=== PATIENT | female | born 1985 | race Two or more races ===

== ENCOUNTER 2019-08-10 20:55 | Emergency (ER) | payer MEDICAID ==
[~2019-08-10] VITALS: Ht 165.1 cm; Wt 93.4 kg
[~2019-08-10 20:55] MED LIST: PREN-96 PO
[2019-08-10 21:27] LABS: Urine Amorphous Crystal FEW /hpf (None Seen); Urine Bacteria FEW /hpf (None Seen); Urine Blood 3+ /uL (Negative); Urine Mucus FEW (None Seen); Urine Specific Gravity 1.021 (1.001-1.035); Urine WBC 7 /hpf (0 - 5)
[2019-08-10 22:04] LABS: Basophils # (auto) 0.1 10 ^3/uL (0-0.2); Eosinophils # (auto) 0.2 10 ^3/uL (0-0.8); Hematocrit 27.3 % (36.0-46.0); Hemoglobin 8.5 g/dL (12.2-16.2); Lymphocytes # (auto) 2.6 10 ^3/uL (0.4-5.4); Monocytes # (auto) 0.6 10 ^3/uL (0-1.3); White Blood Cell 8.3 10^3/uL (4.4-10.8)
[2019-08-10 22:05] LABS: Eosinophils % (auto) 2.7 % (0.0-7.0); Lymphocytes % (auto) 30.7 % (10.0-50.0); Mean Corpuscular Hgb Conc. 30.9 g/dL (32.0-36.0); Mean Corpuscular Volume 74.5 fL (80.0-100.0); Monocytes % (auto) 7.4 % (0.0-12.0); Neutrophils # (auto) 4.9 10 ^3/uL (1.6-8.6); Neutrophils % (auto) 58.2 % (37.0-80.0); Nucleated Red Blood Cells % 0.1 %; Platelet Count (auto) 400 10^3/uL (140-450); Red Blood Cells 3.67 10^6/uL (4.0-5.20); Red Cell Distribution Width 16.1 % (11.8-14.3)
[2019-08-10 22:20] LABS: Albumin 3.6 g/dL (3.4-5.0); Calcium 8.5 mg/dL (8.5-10.1); INR 0.98 (0.9-1.15); Partial Thromboplastin Time 23.6 sec (23.64-32.05); Potassium 3.6 mmol/L (3.5-5.1)
[2019-08-10 22:24] LABS: BUN/Creatinine Ratio 19.3; Bilirubin, Total 0.3 mg/dL (0.2-1.0); Total Protein 7.4 g/dL (6.4-8.2)
[2019-08-11] MEDS ORDERED: SODIUM CHLORIDE 0.9% 2,000 ML IV ONE (00:30)
[2019-08-11] MEDS ORDERED: ONDANSETRON HCL 4 MG/2 ML VIAL IV ONE (00:30)
[2019-08-11] MEDS ORDERED: cefTRIAXone 1GM/50ML D5W 50 ML IV ONE (00:30)
[2019-08-11] MEDS ORDERED: ONDANSETRON ODT 4 MG TAB PO ONE (02:00)
[2019-08-11 03:25] LABS: Hematocrit 24.7 % (36.0-46.0); Hemoglobin 7.6 g/dL (12.2-16.2)
[2019-08-11 05:54] VITALS: BP 111/60
[2019-08-11 06:09] VITALS: BP 122/62
[2019-08-11 08:21] VITALS: BP 97/60
== END 2019-08-11 09:11 | disposition home or self-care (01) ==
LOC: ER 20:55
DX: N93.8 Other specified abnormal uterine and vaginal bleeding (principal); N92.1 Excessive and frequent menstruation with irregular cycle; N39.0 Urinary tract infection, site not specified; D64.9 Anemia, unspecified; N83.201 Unspecified ovarian cyst, right side
CPT/HCPCS: 36415; 36430; 76856; 80053; 81001; 84702; 85014; 85018; 85025; 85610; 85730; 86850; 86900; 86901; 86920; 96365; 96366; 96375; 99285; J0696; J2405; J7030; P9016; Q0162

== ENCOUNTER → 2019-12-15 | Emergency (ER) | payer MEDICAID ==
[~2019-12-15] VITALS: Ht 165.1 cm; Wt 93.4 kg
[~2019-12-15] MED LIST changes: +ONDANSETRON ODT 4 MG TAB PO ONE
[2019-12-15 14:00] LABS: Urine Bacteria FEW /hpf (None Seen); Urine Blood 2+ /uL (Negative); Urine Mucus FEW (None Seen); Urine Specific Gravity 1.011 (1.001-1.035); Urine WBC <1 /hpf (0 - 5)
[2019-12-15 15:00] LABS: Basophils # (auto) 0.1 10 ^3/uL (0-0.2); Eosinophils # (auto) 0.2 10 ^3/uL (0-0.8); Monocytes # (auto) 0.5 10 ^3/uL (0-1.3)
[2019-12-15 15:02] LABS: Basophils % (auto) 0.9 % (0.0-2.0); Eosinophils % (auto) 2.5 % (0.0-7.0); Hematocrit 42.8 % (36.0-46.0); Hemoglobin 13.7 g/dL (12.2-16.2); Lymphocytes # (auto) 2.6 10 ^3/uL (0.4-5.4); Lymphocytes % (auto) 29.1 % (10.0-50.0); Mean Corpuscular Hemoglobin 24.7 pg (28.0-32.0); Mean Corpuscular Volume 77.1 fL (80.0-100.0); Monocytes % (auto) 5.1 % (0.0-12.0); Neutrophils # (auto) 5.5 10 ^3/uL (1.6-8.6); Neutrophils % (auto) 62.4 % (37.0-80.0); Nucleated Red Blood Cells % 0.1 %; Platelet Count (auto) 351 10^3/uL (140-450); Red Blood Cells 5.55 10^6/uL (4.0-5.20); Red Cell Distribution Width 18.8 % (11.8-14.3); White Blood Cell 8.8 10^3/uL (4.4-10.8)
[2019-12-15 15:18] LABS: Albumin 4.4 g/dL (3.4-5.0); BUN/Creatinine Ratio 19.3; Calcium 9.3 mg/dL (8.5-10.1); Potassium 3.6 mmol/L (3.5-5.1)
[2019-12-15 15:21] LABS: Bilirubin, Total 0.5 mg/dL (0.2-1.0); Total Protein 8.3 g/dL (6.4-8.2)
[2019-12-15 17:32] VITALS: BP 127/72
== END | disposition home or self-care (01) ==
LOC: ER 13:06
DX: B34.9 Viral infection, unspecified (principal); Z79.899 Other long term (current) drug therapy
CPT/HCPCS: 36415; 71046; 76705; 80053; 81001; 81025; 85025; 99285; Q0162

== ENCOUNTER 2020-05-18 08:56 | Emergency (ER) | payer MEDICAID ==
[~2020-05-18] VITALS: Ht 165.1 cm; Wt 86.2 kg
[~2020-05-18 08:56] MED LIST changes: -ONDANSETRON ODT 4 MG TAB PO ONE
[2020-05-18 09:38] VITALS: BP 117/60
[2020-05-18] MEDS ORDERED: KETOROLAC TROMETH 60MG/2ML VIAL IM ONE (10:00)
[2020-05-18] MEDS ORDERED: cefTRIAXone SOD 1,000 MG VL IM ONE (10:30)
[2020-05-18] MEDS ORDERED: LIDOCAINE 1% HCL (LOCAL ANESTH.) INJ 20ML MDV ONE (11:09)
== END 2020-05-18 11:33 | disposition home or self-care (01) ==
LOC: ER 08:56
DX: N39.0 Urinary tract infection, site not specified (principal); Z86.2 Personal history of diseases of the blood and blood-forming organs and certain disorders involving the immune mechanism; Z98.890 Other specified postprocedural states; Z98.51 Tubal ligation status; Z79.899 Other long term (current) drug therapy; Z91.018 Allergy to other foods
CPT/HCPCS: 72100; 81002; 96372; 99284; J0696; J1885; J2001

== ENCOUNTER 2020-08-20 10:30 | Emergency (ER) | payer MEDICAID ==
[~2020-08-20] VITALS: Ht 165.1 cm; Wt 89.4 kg
[2020-08-20 10:53] LABS: Basophils # (auto) 0.1 10 ^3/uL (0-0.2); Eosinophils # (auto) 0.2 10 ^3/uL (0-0.8); Mean Corpuscular Volume 79.9 fL (80.0-100.0); Monocytes # (auto) 0.5 10 ^3/uL (0-1.3); Nucleated Red Blood Cells % 0.1 %; White Blood Cell 8.5 10^3/uL (4.4-10.8)
[2020-08-20 10:55] LABS: Eosinophils % (auto) 2.2 % (0.0-7.0); Hematocrit 31.9 % (36.0-46.0); Hemoglobin 10.5 g/dL (12.2-16.2); Lymphocytes # (auto) 2.5 10 ^3/uL (0.4-5.4); Lymphocytes % (auto) 29.4 % (10.0-50.0); Mean Corpuscular Hemoglobin 26.3 pg (28.0-32.0); Mean Corpuscular Hgb Conc. 32.9 g/dL (32.0-36.0); Monocytes % (auto) 6.3 % (0.0-12.0); Neutrophils # (auto) 5.2 10 ^3/uL (1.6-8.6); Neutrophils % (auto) 61.1 % (37.0-80.0); Red Blood Cells 3.99 10^6/uL (4.0-5.20)
[2020-08-20 11:10] LABS: Albumin 3.5 g/dL (3.4-5.0); Calcium 8.4 mg/dL (8.5-10.1); Potassium 4.1 mmol/L (3.5-5.1)
[2020-08-20 11:13] LABS: BUN/Creatinine Ratio 14.3; Bilirubin, Total 0.4 mg/dL (0.2-1.0); Total Protein 7.2 g/dL (6.4-8.2)
[2020-08-20] MEDS ORDERED: KETOROLAC TROMETH 60MG/2ML VIAL IM ONE (12:00)
[2020-08-20 12:06] LABS: Urine Bacteria NONE SEEN /hpf (None Seen); Urine Blood 3+ /uL (Negative); Urine Mucus FEW (None Seen); Urine WBC 1055 /hpf (0 - 5); Urine WBC Clumps PRESENT /hpf (None Seen)
[2020-08-20 12:07] LABS: Urine Specific Gravity 1.018 (1.001-1.035)
[2020-08-20 12:11] VITALS: BP 123/75
[2020-08-20] MEDS ORDERED: cefTRIAXone SOD 1,000 MG VL IM ONE (12:45)
== END 2020-08-20 13:35 | disposition home or self-care (01) ==
LOC: ER 10:30
DX: N92.0 Excessive and frequent menstruation with regular cycle (principal); N39.0 Urinary tract infection, site not specified; Z86.2 Personal history of diseases of the blood and blood-forming organs and certain disorders involving the immune mechanism; Z79.899 Other long term (current) drug therapy; Z91.018 Allergy to other foods
CPT/HCPCS: 36415; 76856; 80053; 81001; 84702; 85025; 96372; 99284; J0696; J1885

== ENCOUNTER 2022-06-08 08:05 | Emergency (ER) | payer MEDICAID ==
[~2022-06-08] VITALS: Ht 165.1 cm; Wt 93.8 kg
[2022-06-08 08:31] VITALS: BP 124/93
[2022-06-08] MEDS ORDERED: ACETAMINOPHEN 500 MG TAB PO ONE (08:45)
[2022-06-08] MEDS ORDERED: ACET-1080 PO (09:24)
== END 2022-06-08 09:20 | disposition home or self-care (01) ==
LOC: ER 08:05
DX: G44.209 Tension-type headache, unspecified, not intractable (principal); Z86.2 Personal history of diseases of the blood and blood-forming organs and certain disorders involving the immune mechanism
CPT/HCPCS: 70450; 81002; 81025